=== PATIENT | male | born 1955 | race Caucasian/White ===

== ENCOUNTER → 2021-09-20 | Outpatient (REF) | payer MEDICARE, OTHER | LOC: M SFHCDERM 17:14 | PROVIDERS: ATTEND Nurse Practitioner Family | DX: D22.39 Melanocytic nevi of other parts of face (principal); D22.21 Melanocytic nevi of right ear and external auricular canal; C44.42 Squamous cell carcinoma of skin of scalp and neck ==

== ENCOUNTER → 2024-03-01 | Outpatient (REF) | payer MEDICARE, BC, OTHER ==
[~2024-03-01] MED LIST: ACYC1TAB PO; ADJU0.5V IM; AMIO200T49 PO; ASPI81CH33 PO; ATIV1TAB10 PO; CALC600T60 PO; CALCCHW4 PO; CETI10CH PO; CIDA500T2 PO; D 1010004 PO; DILT12SRCA PO; FISH120016 PO; LORA1TAB23 PO; NYST100085 TOP; ONDA-84 PO; SILD100T PO; XARE20TA PO; magnesium PO
== END ==
LOC: M SFHCDERM 17:52
PROVIDERS: ATTEND Nurse Practitioner Family
DX: D04.39 Carcinoma in situ of skin of other parts of face (principal)

== ENCOUNTER → 2025-03-04 | Outpatient (REF) | payer MEDICARE, BC, OTHER ==
[~2025-03-04] MED LIST changes: +ACYC-438 PO; -ACYC1TAB PO; -AMIO200T49 PO; +AMIO200T54 PO
== END ==
LOC: M SFHCDERM 17:17
PROVIDERS: ATTEND Nurse Practitioner Family
DX: L98.8 Other specified disorders of the skin and subcutaneous tissue (principal)